=== PATIENT | male | born 1975 | race Caucasian/White ===

== ENCOUNTER 2023-03-03 16:56 | Emergency (ER) | payer BC ==
[~2023-03-03] VITALS: Ht 182.9 cm; Wt 170.6 kg
[2023-03-03 17:21] VITALS: BP 147/69; PULSE 83; RESP 20; TEMP 97.9; O2SAT 97
[2023-03-03] MEDS ORDERED: IBUP-2218 PO (19:01)
[2023-03-03 19:16] VITALS: BP 147/69; PULSE 83; RESP 20; TEMP 97.9; O2SAT 97
== END 2023-03-03 19:15 | disposition home or self-care (01) ==
LOC: MED 16:56
DX: S83.8X2A Sprain of other specified parts of left knee, initial encounter (principal); R03.0 Elevated blood-pressure reading, without diagnosis of hypertension; Z79.899 Other long term (current) drug therapy; X58.XXXA Exposure to other specified factors, initial encounter; Y93.89 Activity, other specified; Y92.89 Other specified places as the place of occurrence of the external cause; Y99.8 Other external cause status
CPT/HCPCS: 73562; 99283